=== PATIENT | male | born 2000 ===

== ENCOUNTER 2022-05-09 16:55 | Emergency (ER) | payer MEDICAID, SELFPAY ==
[2022-05-09 17:36] VITALS: BP 129/72; PULSE 70; RESP 18; TEMP 37.1; O2SAT 97; BMI 23.6
--- NOTE | 2022-05-09 17:39 | CRLHL7_ITS ---
For Patients: As a result of the Century Cures Act, medical imaging exams and procedure reports are released immediately into your electronic medical record. You may view this report before your referring provider. If you have questions, please contact your health care provider. Indication: Injury with pain and swelling. Technique: Right ankle 3 views. Comparison: None. Findings/Impression: Bones: Alignment is normal. No fractures or bone lesions. No sign of acute injury. Joint spaces: Unremarkable. Soft tissues: Mild generalized soft tissue swelling. Dictated by Josue Bueno MD @ 05/09/2022 6:29:01 PM (Electronically Signed)
[2022-05-09 19:06] VITALS: BP 121/70; PULSE 68; RESP 18; TEMP 36.7; O2SAT 97
--- NOTE | 2022-05-09 19:14 | ED.LOWEXIN ---
HPI - Extremity Injury (Lower) General Chief Complaint: Extremity Pain/Injury, Lower Stated Complaint: Rolled R ankle Time Seen by Provider: 05/09/22 18:58 History of Present Illness HPI Narrative: Pt slipped on the ice turning his right ankle tonight. Pt did not fall and pain is moderate and limited to the right lateral ankle. Pt able to bear weight. No bruising and swelling is minimal. No knee or foot pain. Pt has no previous episodes and otherwise is in good health. Related Data Home Medications Medication Instructions Recorded Confirmed No Known Home Medications 05/09/22 05/09/22 Allergies Allergy/AdvReac Type Severity Reaction Status Date / Time No Known Drug Allergies Allergy Verified 05/09/22 17:35 Review of Systems Status of ROS: Reports: 6 or more systems reviewed and unremarkable except as noted in History and below [facility] Medical History No significant past medical history Surgical History No significant past surgical history Social History Smoking Status: Never smoker Do you use any of these nicotine containing products: None Second hand tobacco smoke exposure: No How often do you have a drink containing alcohol: never How often do you have six or more drinks on one occasion: Never AUDIT-C Alcohol total score: 0 Non-prescribed substance use: denies use Exam Narrative: Exam Narrative: EXAM GENERAL: Patient appears comfortable and well. EYES: No scleral icterus. LYMPH: No supraclavicular or cervical lymphadenopathy. SKIN: Visible skin seen during exam normal or with benign process only. EXT: No dependent lower extremity pedal edema. R ankle non tender no swelling or echymosis. No pain to palpation. HEART: Regular rate and rhythm with no murmurs, rubs, or gallops. LUNGS: Clear to auscultation bilaterally with no crackles or wheezes. ABD: Soft, non tender, non distended. PSYCH: Good eye contact, speech is not pressured. Const: Vital Signs, click to edit/add: Vital Signs - 24 hr 05/09/22 17:36 05/09/22 19:06 Temperature 98.7 F 98.0 F Pulse Rate [Right Pulse Oximeter] 70 68 Respiratory Rate 18 18 Blood Pressure [Ri t Upper Arm] 129/72 121/70 Pulse Oximetry 97 97 Oxygen Delivery Me thod Room Air Room Air Course Course Hospital Course: Pt seen and examined. Pt's x ray of right ankle negative upon my review. Vital Signs Vital signs: Initial Vital Signs Temperature 98.7 F 05/09/22 17:36 Temperature Source Temporal Artery Scan 05/09/22 17:36 Pulse Rate 70 05/09/22 17:36 Respiratory Rate 18 05/09/22 17:36 Blood Pressure 129/72 05/09/22 17:36 Blood Pressure Mean 91 05/09/22 17:36 Blood Pressure Position Sitting 05/09/22 17:36 Pulse Oximetry 97 05/09/22 17:36 Oxygen Delivery Method 05/09/22 17:36 Vital Signs Temperature 98.7 F 05/09/22 17:36 Pulse Rate 70 05/09/22 17:36 Respiratory Rate 18 05/09/22 17:36 Blood Pressure 129/72 05/09/22 17:36 Pulse Oximetry 97 05/09/22 17:36 Oxygen Delivery Method 05/09/22 17:36 Temperature 98.0 F 05/09/22 19:06 Pulse Rate 68 05/09/22 19:06 Respiratory Rate 18 05/09/22 19:06 Blood Pressure 121/70 05/09/22 19:06 Pulse Oximetry 97 05/09/22 19:06 Oxygen Delivery Method 05/09/22 19:06 MDM - Extremity Injury (Lower) MDM Narrative Medical decision making narrative: Pt presents with isoloated ankle injury. Pt's ankle grossly normal to inspection and palpation. Pt's x ray negative. Will treat with rest, ice, compression, elevation, tylenol, motrin. Differential Diagnosis Differential diagnosis: Likely ankle sprain and strain, acute internal derangement of knee, fracture of femur, fracture of hip, fracture of toe and ankle fracture Discharge Plan Discharge Clinical Impression: Ankle sprain and strain Patient Disposition: Home, Self-Care Condition: Stable Instructions: Ankle Sprain (ED) Additional Instructions: Rest Ice Compression Elevation Tylenol Motrin Activity Level: Activity as Tolerated Discharge Diet: Regular Prescriptions: No Action No Known Home Medications Stand [facility] Inst[facility]
[2022-05-09 19:29] VITALS: BP 121/70; PULSE 68; RESP 18; TEMP 36.7
== END 2022-05-09 19:29 | disposition home or self-care (01) ==
PROVIDERS: Emergency Provider Internal Medicine
DX: S93.401A Sprain of unspecified ligament of right ankle, initial encounter (principal); W00.9XXA Unspecified fall due to ice and snow, initial encounter
CPT/HCPCS: 73610; 99283